=== PATIENT | female | born 1965 | race Caucasian/White ===

== ENCOUNTER 2017-10-17 06:28 | Day surgery (SDC) | payer BC, SELFPAY ==
[2017-10-17 07:11] VITALS: BP 109/89; PULSE 69; RESP 16; TEMP 36.7; O2SAT 96; BMI 26.9
--- NOTE | 2017-10-17 07:33 | PCM.HP.STD ---
Problem List (1) Family history of colonic polyps Status: Acute History of Present Illness Date of Admission: 10/17/17 The patient is a 52 year old F with a family history of colon polyps in her father. The patient does not recall when she had her most recent colonoscopy. She denies bright red blood per rectum or melena. She is referred by primary care for colonoscopy with possible biopsy or polypectomy. She has had some recent bronchitis. She was treated with antibiotics and she feels that she is improved. She was able to tolerate the bowel prep. Past Medical History Past Medical History (Chronic Problems): Chronic Problems Essential hypertension (Chronic) COPD (chronic obstructive pulmonary disease) (Chronic) Allergies sulfamethoxazole [From Bactrim] Allergy (Verified 09/30/17 16:05) Anaphylaxis trimethoprim [From Bactrim] Allergy (Verified 09/30/17 16:05) Anaphylaxis soy Adverse Reaction (Verified 09/30/17 16:05) Shortness of breath Home Medications: Ambulatory Orders Medication Instructions Recorded Albuterol IH (ProAir) [Proair Hfa] 1 - 2 puff INHALATION Q4H PRN PRN 06/03/17 Duloxetine Hcl [Cymbalta] 60 mg PO DAILY 06/03/17 Losartan/Hydrochlorothiazide 1 each PO DAILY 06/03/17 [Losartan-Hctz 100-25 mg Tab] Multivitamin [Daily Multiple 1 each PO DAILY 06/03/17 Vitamin] TraMADol [Ultram] 50 mg PO Q4H PRN PRN 07/02/17 Budesonide/Formoterol 160/4.5 2 puff INHALATION DAILY 09/30/17 [Symbicort 160/4.5 Mcg Inhaler (SP)] Lysine [l-Lysine] 600 mg PO DAILY 09/30/17 Surgical History: no surgical history Psychiatric History: No pertinent psych hx Smoking Status: Former smoker - *Family History Paternal History Items: No pertinent history Review of Systems Constitutional: Denies: Anorexia Eyes: Denies: Blurred vision HEENT: Denies: Difficulty Hearing Cardiovascular: Reports: - - Intermittent wheezing Respiratory: Reports: Cough, Wheezing Gastrointestinal: Denies: Abdominal Pain Genitourinary: Denies: Dysuria Musculoskeletal: Reports: - - Arm injuries from wood burner Skin: Reports: Dryness Neurological: Denies: Balance problems Psychiatric: Denies: Anxiety Endocrine: Denies: Change in Body Habitus Hematologic/ Lymphatic: Denies: Adenopathy VTE Information - Inpt Only VTE Present on Admission: No Patient Problems: Active and Suspected Problems Family history of colonic polyps (Acute) - Physical Exam General: Alert, Oriented x3, Cooperative HEENT: Atraumatic Oral: Moist Mucosa Neck: Supple Lungs: Wheezes Cardiovascular: Regular rate, Regular Rhythm Abdomen: Bowel Sounds Present, Soft, Non Tender Extremities: No clubbing Skin: No rashes Musculoskeletal: No Tenderness to Palpation of Joints or Extremities Neurological: Cranial nerves II-XII grossly intact Psych/Mental Status: Normal Affect Vital Signs Temp Pulse Resp BP Pulse Ox 98.0 F 69 16 109/89 H 96 10/17/17 07:11 10/17/17 07:11 10/17/17 07:11 10/17/17 07:11 10/17/17 07:11 Oxygen Delivery Method Room Air Weight: 161 lb 9.581 oz Body Mass Index (BMI) 26.9 Assessment/Plan Active and Suspected Problems Family history of colonic polyps (Acute) Some scattered wheezes noted on auscultation. The patient appears to be respiring easily. She has accomplished her bowel prep. We will proceed with colonoscopy with possible biopsy or polypectomy is indicated. She has had an opportunity to ask and have questions answered. Jackson Lemon M.D., F.A.C.S.
--- NOTE | 2017-10-17 07:58 | PCM.OPRPT ---
Problem List (1) Family history of colonic polyps Status: Acute Report of Operation Date of Procedure: 10/17/17 Pre-Operative Diagnosis: Family history with a father with colon polyps Post-Operative Diagnosis: Sigmoid diverticulosis Surgery/Procedure Performed:: Colonoscopy Description of Surgical Findings:: Timeout and informed consent was obtained. 52-year-old female was taken to the endoscopy suite. She was placed in a left lateral decubitus position. Throughout the procedure in aliquots she received total 100 mg Demerol and 4 mg of Versed is intravenous sedation. Digital rectal exam performed. Normal anal tone. Mild hemorrhoidal changes. Flexible colonoscope inserted the rectum advanced through a somewhat tortuous sigmoid colon. Scope was then advanced through the transverse colon with transabdominal pressure is advanced to the cecum. The cecum ileocecal valve area was nicely achieved. Bowel prep was good. The scope was carefully withdrawn from the cecum and ascending colon transverse colon and descending colon without abnormality noted. The sigmoid colon has moderate diverticulosis but no evidence of acute inflammatory change. The scope was retroflexed within the rectum the mild hemorrhoidal changes noted. Excess fluid and air was aspirated free the procedure was completed with the patient tolerating it well. Impression Sigmoid diverticulosis. Recommendations for consideration of follow-up colonoscopy at 5 years. Cc: Dr. Samuel Vazquez Medications given at 0738. Scope inserted 0742. Cecum reached at 0748.55. Procedure completed at 0755.16 Jackson Lemon M.D., F.A.C.S. Type of Anesthesia:: IV Sedation
[2017-10-17 08:00] VITALS: BP 109/89; BP 116/77; PULSE 64; RESP 18; TEMP 36.9; O2SAT 98
[2017-10-17 08:05] VITALS: BP 109/89; BP 118/77; PULSE 60; RESP 18; O2SAT 95
[2017-10-17 08:10] VITALS: BP 109/89; BP 118/73; PULSE 59; RESP 18; O2SAT 96
[2017-10-17 08:15] VITALS: BP 109/89; BP 121/80; PULSE 57; RESP 18; TEMP 36.7; O2SAT 98
[2017-10-17 08:33] VITALS: BP 109/89
== END 2017-10-17 08:35 | disposition home or self-care (01) ==
LOC: EN 06:30 → AC 06:30
PROVIDERS: Family Provider Family Medicine; PCP Family Medicine; Visit Provider Surgery
PROC: 0DJD8ZZ Inspection of Lower Intestinal Tract, Via Natural or Artificial Opening Endoscopic (ICD-10-PCS; CPT 45378; principal; 2017-10-17 07:40)
DX: K57.30 Diverticulosis of large intestine without perforation or abscess without bleeding (principal); J44.9 Chronic obstructive pulmonary disease, unspecified; I10 Essential (primary) hypertension; Z79.899 Other long term (current) drug therapy; Z87.891 Personal history of nicotine dependence; Z83.71 Family history of colonic polyps
CPT/HCPCS: 45378; J7120

== ENCOUNTER 2023-05-16 07:57 | Day surgery (SDC) | payer MEDICARE, SELFPAY ==
[2023-05-16 08:18] VITALS: BP 116/92; PULSE 86; RESP 16; TEMP 36.6; O2SAT 93; BMI 26.9
[2023-05-16] MEDS: Lactated Ringers 1,000 ML 15 ML IV (08:36)
--- NOTE | 2023-05-16 09:00 | COLBX_PTH ---
PATIENT: KELSI SCHAFER LOC: EN U#:[id number] AGE/SX: 57/F ROOM: RE05/16/[address]: Dr. Jackson Lemon MD : 1965 BED: DIS: 05/16/2023 SPEC #: [id number] RECD: 05/16/23 11:56 STATUS: RUFUS PALACIOSGena #: [id number] CHINO: 05/16/23 09:[address]: Jackson Lemon DEPT: SURGICAL PATHOLOGY RECD BY: Mai Maya ENTERED: 05/16/23 13:03 SP TYPE: COLON BX DEANNA DR: Dr. Samuel Vazquez MD Tissues: A - Cecum, NOS B - Sigmoid colon biopsy Procedures: Surgery Specimen Level IV HEADER OPERATION: Colonoscopy PRE-OP DIAGNOSIS: Family history of colonic polyps TISSUE SUBMITTED: A - Cecal polyp biopsy, B - Distal sigmoid polyp biopsy MICROSCOPIC DIAGNOSIS A. Cecal polyp, biopsy: Tubular adenoma. B. Distal sigmoid polyp, biopsy: Fragments of colonic mucosa, no pathologic diagnosis. JOI:[email or web address] 05/19/2023 MICROSCOPIC DESCRIPTION Slides are reviewed. GROSS DESCRIPTION A - Received in fixative is one container labeled with the patient's name and designated cecal polyp biopsy. The specimen consists of one irregular fragment of light brown soft tissue that measures 0.2 x 0.2 x 0.1 cm. The specimen is totally submitted in one cassette. B - Received in fixative is one container labeled with the patient's name and designated distal sigmoid polyp. The specimen consists of two irregular fragments of light brown soft tissue that in aggregate measure 0.5 x 0.2 x 0.1 cm. The specimen is totally submitted in one cassette. / JOI:abhishek 05/16/2023 TC:1 CPT: 27601 x2
--- NOTE | 2023-05-16 09:22 | HP.PCM_ITS ---
HPI - General General Date of Admission: 06/06/20 Date of Service: 05/16/23 Chief Complaint: Personal history of colon polyps HPI Narrative KELSI SCHAFER, is a 57 F who presents via open access today. She has a personal history remotely of colon polyps. Most recent colonoscopy was done in [place] by Dr. Grier October 17, 2017. Tortuous colon and diverticulosis was noted at that time. She has not had any any bright red blood per rectum or melena. I have assisted her with her previous hiatal hernia repair. She states that she might be having some recurrence but she is aware that we will not be evaluating that at this moment. FOR[facility]LY [facility] Medical History (Updated 05/14/23 @ 09:48 by Lanny Coates) Alcohol use Anxiety Arthritis Asthma Chronic cough COPD (chronic obstructive pulmonary disease) DDD (degenerative disc disease) Fibromyalgia GERD (gastroesophageal reflux disease) History of edema History of hiatal hernia History of IBS History of steroid therapy Hyperlipidemia Hypertension Large hiatal hernia Migraine Mild persistent asthma without complication Normal stress echocardiogram CRUZ (obstructive sleep apnea) Rheumatoid arthritis Rheumatoid arthritis involving multiple sites with positive rheumatoid factor Shortness of breath on exertion Sleep apnea Smoker Wears glasses Home Medications albuterol sulfate 90 mcg/actuation aerosol inhaler (ProAir HFA) 1 - 2 puff inhalation Q4H PRN PRN Asthma 06/03/17 [History Last Taken 10/17/17 06:00] duloxetine 60 mg capsule,delayed release 60 mg PO DAILY 06/03/17 [History Last Taken 07/07/17 04:30] losartan 100 mg-hydrochlorothiazide 25 mg tablet 1 ea PO DAILY 06/03/17 [History Last Taken 10/17/17 06:00] albuterol sulfate 2.5 mg/3 mL (0.083 %) solution for nebulization 2.5 mg inhalation Q4H PRN shortness of breath or wheezing 04/01/23 [History Last Taken Unknown] amlodipine 5 mg tablet 5 mg PO DAILY 04/01/23 [History Last Taken Unknown] mecobalamin (vitamin B12) 5,000 mcg chewable tablet 5,000 mcg PO DAILY 04/01/23 [History Last Taken Unknown] meloxicam 7.5 mg tablet 7.5 mg PO BID 04/01/23 [History Last Taken Unknown] budesonide 0.5 mg/2 mL suspension for nebulization 0.5 mg inhalation Q12H PRN COPD 05/14/23 [History Last Taken Unknown] loratadine 10 mg tablet (Allergy Relief (loratadine)) 10 mg PO DAILY 05/14/23 [History Last Taken Unknown] Allergy/AdvReac Type Severity Reaction Status Date / Time sulfamethoxazole Allergy Anaphylaxis Verified 05/14/23 09:34 [From Bactrim] trimethoprim [From Bactrim] Allergy Anaphylaxis Verified 05/14/23 09:34 soy AdvReac Shortness Verified 05/14/23 09:34 of breath Family History (Updated 04/01/23 @ 08:30 by Sharon Shaffer) Father Colon polyps Surgical History (Updated 05/14/23 @ 09:48 by Lanny Coates) History of ankle surgery History of bunionectomy History of repair of hiatal hernia Hx of carpal tunnel repair Hx of colonoscopy Hx of hand surgery Hx of tonsillectomy Social History Smoking Status: Current every day smoker tobacco type: cigarettes ROS Constitutional Constitutional: Reports systems reviewed and no addt'l complaints, except as documented Cardiovascular Cardiovascular: Denies chest pain Respiratory/Chest Respiratory/Chest: Denies shortness of breath at rest Gastrointestinal Gastrointestinal: Denies abdominal pain, change in bowel habits, hematochezia or melena Vital Signs Vital Signs Vital Signs: 05/16/23 08:18 05/16/23 08:18 Temperature 97.9 F Temperature Source Temporal Pulse Rate 86 Respiratory Rate 16 Respiratory Pattern Normal Blood Pressure 116/92 H Blood Pressure Mean 100 Blood Pressure Source Monitor Blood Pressure Position Semi-Fowlers Blood Pressure Location Left Arm Pulse Ox 93 Oxygen Delivery Method Room Air Weight Weight: 152 lb 1.903 oz Body Mass Index (BMI) 26.9 Physical Exam Const alert, oriented x3 and no apparent distress General Appearance: cooperative and comfortable Eyes General Eye: normal appearance of both eyes Neck General: normal visual inspection Chest inspection of chest normal Resp Effort and Inspection: able to speak in complete sentences and symmetric chest movement Auscultation: clear to auscultation bilaterally Cardio regular rate and regular rhythm GI soft to palpation, non-tender and non-distended Extremity no calf tenderness Neuro oriented x3 Psych thought process normal Assessment & Plan Assessment/Plan (1) Family history of colonic polyps: PLAN: Plan Patient presents for a surveillance colonoscopy as she states she has had a personal previous history of colon polyps and also only a family history of col on polyps. She is aware of the technique, benefit, risk, alternatives. She has had an opportunity to ask and have questions answered. We will proceed as noted. Jackson Lemon M.D., F.A.C.S.
[2023-05-16 09:53] VITALS: BP 116/92; BP 121/85; PULSE 106; RESP 18; TEMP 36.5; O2SAT 98
[2023-05-16 09:55] VITALS: BP 111/77; BP 116/92; PULSE 98; RESP 18; O2SAT 97
--- NOTE | 2023-05-16 09:56 | OP.COLON_ITS ---
Patient Name: Deysi Lai Procedure Date: 05/16/2023 9:23 AM Date of : 1965 Age: 57 Procedure: Colonoscopy Indications: High risk colon cancer surveillance: Personal history of colonic polyps Providers: Jackson Lemon MD Referring MD: Samuel Vazquez MD Medicines: See the Anesthesia note for documentation of the administered medications Patient Profile: Last Colonoscopy: September 2017. Complications: No immediate complications. Procedure: Pre-Anesthesia Assessment: - Prior to the procedure, a History and Physical was performed, and patient medications and allergies were reviewed. The patient's tolerance of previous anesthesia was also reviewed. The risks and benefits of the procedure and the sedation options and risks were discussed with the patient. All questions were answered, and informed consent was obtained. Prior Anticoagulants: The patient has taken no anticoagulant or antiplatelet agents. ASA Grade Assessment: II - A patient with mild systemic disease. After reviewing the risks and benefits, the patient was deemed in satisfactory condition to undergo the procedure. After I obtained informed consent, the scope was passed under direct vision. Throughout the procedure, the patient's blood pressure, pulse, and oxygen saturations were monitored continuously. The colonoscope was introduced through the anus and advanced to the cecum, identified by appendiceal orifice and ileocecal valve. The colonoscopy was performed without difficulty. The patient tolerated the procedure well. The quality of the bowel preparation was good. The ileocecal valve and the appendiceal orifice were photographed. Scope In: 9:32:39 AM Scope Withdrawal Time 0 hours 9 minutes 17 seconds Scope Out: 9:48:12 AM Total Procedure Duration Time 0 hours 15 minutes 33 seconds Findings: The digital rectal exam findings include non-thrombosed external hemorrhoids, non-thrombosed internal hemorrhoids and internal hemorrhoids that prolapse with straining, but spontaneously regress to the resting position (Grade II). A 3 mm polyp was found in the cecum. The polyp was sessile. The polyp was removed with a cold biopsy forceps. Resection and retrieval were complete. A 4 mm polyp was found in the distal sigmoid colon. The polyp was sessile. The polyp was removed with a cold biopsy forceps. Resection and retrieval were complete. Multiple diverticula were found in the sigmoid colon. Impression: - Non-thrombosed external hemorrhoids, non-thrombosed internal hemorrhoids and internal hemorrhoids that prolapse with straining, but spontaneously regress to the resting position (Grade II) found on digital rectal exam. - One 3 mm polyp in the cecum, removed with a cold biopsy forceps. Resected and retrieved. - One 4 mm polyp in the distal sigmoid colon, removed with a cold biopsy forceps. Resected and retrieved. - Diverticulosis in the sigmoid colon. Recommendation: - Discharge patient to home. - Resume previous diet. - Continue present medications. - Repeat colonoscopy in 5 years for surveillance based on pathology results. Procedure Code(s): --- Professional --- 82566, Colonoscopy, flexible; with biopsy, single or multiple Diagnosis Code(s): --- Professional --- Z86.010, Personal history of colonic polyps K64.1, Second degree hemorrhoids K64.4, Residual hemorrhoidal skin tags D12.0, Benign neoplasm of cecum D12.5, Benign neoplasm of sigmoid colon K57.30, Diverticulosis of large intestine without perforation or abscess without bleeding CPT copyright 2021 [employer]. All rights reserved. The codes documented in this report are preliminary and upon fly frame tender review may be revised to meet current compliance requirements. Jackson Lemon MD 05/16/2023 9:55:27 AM This report has been signed electronically. Number of Addenda: 0 Note Initiated On: 05/16/2023 9:23 AM
--- NOTE | 2023-05-16 09:56 | OP.CCLET_ITS ---
05/16/2023 Samuel Vazquez MD Re : Colonoscopy procedure for Deysi Lai Dear Dr. Vazquez This procedure was performed on Tuesday, May 16, 2023. My impressions and recommendations are as follows: Impressions : - Non-thrombosed external hemorrhoids, non-thrombosed internal hemorrhoids and internal hemorrhoids that prolapse with straining, but spontaneously regress to the resting position (Grade II) found on digital rectal exam. - One 3 mm polyp in the cecum, removed with a cold biopsy forceps. Resected and retrieved. - One 4 mm polyp in the distal sigmoid colon, removed with a cold biopsy forceps. Resected and retrieved. - Diverticulosis in the sigmoid colon. Recommendations : - Discharge patient to home. - Resume previous diet. - Continue present medications. - Repeat colonoscopy in 5 years for surveillance based on pathology results. My findings are described in the full procedure note, which is enclosed. If I can be of further assistance, please feel free to contact me at Doctor phone number(s): Work: . Sincerely, Jackson Lemon MD 05/16/2023 9:55:27 AM This report has been signed electronically.
[2023-05-16 10:00] VITALS: BP 100/58; BP 116/92; PULSE 77; RESP 18; O2SAT 95
[2023-05-16 10:08] VITALS: BP 100/58; BP 116/92; PULSE 69; RESP 18; TEMP 36.6; O2SAT 97
[2023-05-16 10:34] VITALS: BP 116/92
== END 2023-05-16 10:47 | disposition home or self-care (01) ==
LOC: EN 08:01 → AC 08:02
PROVIDERS: PCP Family Medicine; Referring Provider Family Medicine; Visit Provider Surgery
PROC: 0DJD8ZZ Inspection of Lower Intestinal Tract, Via Natural or Artificial Opening Endoscopic (ICD-10-PCS; CPT 45378; principal; 2023-05-16 08:55)
DX: Z12.11 Encounter for screening for malignant neoplasm of colon (principal); J44.9 Chronic obstructive pulmonary disease, unspecified; J45.30 Mild persistent asthma, uncomplicated; D12.0 Benign neoplasm of cecum; D12.5 Benign neoplasm of sigmoid colon; K64.1 Second degree hemorrhoids; K64.4 Residual hemorrhoidal skin tags; K57.30 Diverticulosis of large intestine without perforation or abscess without bleeding; I10 Essential (primary) hypertension; F17.210 Nicotine dependence, cigarettes, uncomplicated; Z79.899 Other long term (current) drug therapy; Z86.010 Personal history of colon polyps; Z83.71 Family history of colonic polyps
CPT/HCPCS: 45380; 88305; J7120; J2405

== ENCOUNTER → 2023-07-07 | Outpatient (CLI) | payer MEDICARE, SELFPAY ==
--- NOTE | 2023-07-07 08:45 | RAD_ITS ---
EXAMINATION: Air contrast esophagram and UPPER GI SERIES INDICATION: Female, 57 years history of prior hiatal hernia repair. FLUOROSCOPY TIME (if supplied): (1:20) minutes/seconds. 23 images were obtained. TECHNIQUE: Radiographic and fluoroscopic images of the distal esophagus, stomach, and proximal small intestine were obtained following the oral ingestion of barium. COMPARISON: None. FINDINGS: There is no evidence for organomegaly, abnormal calcifications, or abnormal bowel gas pattern. The psoas margins and flank stripes are normal. The visualized osseous structures are normal. The mucosa of the esophagus, stomach and duodenum is normal in appearance without evidence for stricture, ulceration, mass or diverticulum. The patient is status post Randy fundoplication. Mild degree of gastroesophageal reflux. The patient ingested a 12 mm tablet of barium without any difficulty. The remainder of the stomach and duodenum is unremarkable. RAD/Upper GI w/BA Swallow IMPRESSION: Status post Gilles fundoplication with mild gastroesophageal reflux. Electronically Signed: Butch Russell MD at 15:40 EDT ,
== END | disposition home or self-care (01) ==
LOC: RAD 08:40
PROVIDERS: PCP Family Medicine; Referring Provider Surgery; Visit Provider Surgery
DX: R13.19 Other dysphagia (principal)
CPT/HCPCS: 74246

== ENCOUNTER 2023-07-25 07:55 | Day surgery (SDC) | payer MEDICARE, SELFPAY ==
[2023-07-25] VITALS (7 sets, daily range): BP systolic 101–117; BP diastolic 78–84; PULSE 80–90; RESP 18–20; TEMP 36.6; O2SAT 92–96; BMI 26.5
[2023-07-25] MEDS: Lactated Ringers 1,000 ML 15 ML IV (08:25)
[2023-07-25] MEDS: Ipratropium/Albuterol Sulfate 3 ML AMPUL.NEB INHALATION (08:41)
--- NOTE | 2023-07-25 08:50 | HP.PCM_ITS ---
History and Physical Date of Admission: 07/25/[address] Jackson Lemon MD on 07/08/23 at 1545 Intake Chief Complaint: early, satiety, coughing and vomiting Allergies sulfamethoxazole [From Bactrim] Allergy (Verified 06/23/23 14:14) Anaphylaxistrimethoprim [From Bactrim] Allergy (Verified 06/23/23 14:14) Anaphylaxissoy Adverse Reaction (Verified 06/23/23 14:14) Shortness of breathSOYBEANS Allergy (Severe, Uncoded 06/23/23 14:14) Shortness of breath Medications albuterol sulfate 90 mcg/actuation aerosol inhaler (ProAir HFA) 1 - 2 puff inhalation Q4H PRN PRN Asthma 06/03/17 [History Confirmed 06/23/23] losartan 100 mg-hydrochlorothiazide 25 mg tablet 1 ea PO DAILY 06/03/17 [History Confirmed 06/23/23] albuterol sulfate 2.5 mg/3 mL (0.083 %) solution for nebulization 2.5 mg inhalation Q4H PRN shortness of breath or wheezing 04/01/23 [History Confirmed 06/23/23] amlodipine 5 mg tablet 5 mg PO DAILY 04/01/23 [History Confirmed 06/23/23] mecobalamin (vitamin B12) 5,000 mcg chewable tablet 5,000 mcg PO DAILY 04/01/23 [History Confirmed 06/23/23] meloxicam 7.5 mg tablet 7.5 mg PO BID 04/01/23 [History Confirmed 06/23/23] budesonide 0.5 mg/2 mL suspension for nebulization 0.5 mg inhalation Q12H PRN COPD 05/14/23 [History Confirmed 06/23/23] duloxetine 60 mg capsule,delayed release 60 mg PO DAILY 06/23/23 [History Confirmed 06/23/23] loratadine 10 mg tablet (Allergy Relief (loratadine)) 10 mg PO DAILY PRN 06/23/23 [History Confirmed 06/23/23] Assessment and Plan Assessment and Plan (1) Esophageal dysphagia: Status: Acute Plan: July 08, 2023 EXAMINATION: Air contrast esophagram and UPPER GI SERIES INDICATION: Female, 57 years history of prior hiatal hernia repair. FLUOROSCOPY TIME (if supplied): (1:20) minutes/seconds. 23 images were obtained. TECHNIQUE: Radiographic and fluoroscopic images of the distal esophagus, stomach, and proximal small intestine were obtained following the oral ingestion of barium. COMPARISON: None. FINDINGS: There is no evidence for organomegaly, abnormal calcifications, or abnormal bowel gas pattern. The psoas margins and flank stripes are normal. The visualized osseous structures are normal. The mucosa of the esophagus, stomach and duodenum is normal in appearance without evidence for stricture, ulceration, mass or diverticulum. The patient is status post Randy fundoplication. Mild degree of gastroesophageal reflux. The patient ingested a 12 mm tablet of barium without any difficulty. The remainder of the stomach and duodenum is unremarkable. RAD/Upper GI w/BA Swallow IMPRESSION: Status post Gilles fundoplication with mild gastroesophageal reflux. Electronically Signed: Butch Russell MD at 15:40 EDT , (2) History of hiatal hernia: Status: Acute Comment: LAP GILLES Orders: Orders Upper GI w/BA Swallow 07/07/23 R13.19 - Other dysphagia Dr. Jackson Lemon MD EGD 07/25/23 Regina FORREST, PA-C 07/08/23 1545 <Electronically signed by Jackson Lemon MD> Date Jackson Lemon MD cc: Dr. 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: No Is patient in pain?: No Allergies sulfamethoxazole [From Bactrim] Allergy (Verified 06/23/23 14:14) Anaphylaxistrimethoprim [From Bactrim] Allergy (Verified 06/23/23 14:14) Anaphylaxissoy Adverse Reaction (Verified 06/23/23 14:14) Shortness of breathSOYBEANS Allergy (Severe, Uncoded 06/23/23 14:14) Shortness of breath Medications albuterol sulfate 90 mcg/actuation aerosol inhaler (ProAir HFA) 1 - 2 puff inhalation Q4H PRN PRN Asthma 06/03/17 [History Confirmed 06/23/23] losartan 100 mg-hydrochlorothiazide 25 mg tablet 1 ea PO DAILY 06/03/17 [History Confirmed 06/23/23] albuterol sulfate 2.5 mg/3 mL (0.083 %) solution for nebulization 2.5 mg inhalation Q4H PRN shortness of breath or wheezing 04/01/23 [History Confirmed 06/23/23] amlodipine 5 mg tablet 5 mg PO DAILY 04/01/23 [History Confirmed 06/23/23] mecobalamin (vitamin B12) 5,000 mcg chewable tablet 5,000 mcg PO DAILY 04/01/23 [History Confirmed 06/23/23] meloxicam 7.5 mg tablet 7.5 mg PO BID 04/01/23 [History Confirmed 06/23/23] budesonide 0.5 mg/2 mL suspension for nebulization 0.5 mg inhalation Q12H PRN COPD 05/14/23 [History Confirmed 06/23/23] duloxetine 60 mg capsule,delayed release 60 mg PO DAILY 06/23/23 [History Confirmed 06/23/23] loratadine 10 mg tablet (Allergy Relief (loratadine)) 10 mg PO DAILY PRN 06/23/23 [History Confirmed 06/23/23] [facility] Medical History (Updated 06/23/23 @ 14:[address] Jackson Lemon MD) Alcohol use Anxiety Arthritis Asthma Chronic cough COPD (chronic obstructive pulmonary disease) DDD (degenerative disc disease) Fibromyalgia GERD (gastroesophageal reflux disease) History of edema History of hiatal hernia History of IBS History of steroid therapy Hyperlipidemia Hypertension Large hiatal hernia Migraine Mild persistent asthma without complication Normal stress echocardiogram CRUZ (obstructive sleep apnea) Rheumatoid arthritis Rheumatoid arthritis involving multiple sites with positive rheumatoid factor Shortness of breath on exertion Sleep apnea Smoker Wears glasses Surgical History History of ankle surgery History of bunionectomy History of repair of hiatal hernia Hx of carpal tunnel repair Hx of colonoscopy Hx of hand surgery Hx of tonsillectomy Family History (Updated 06/23/23 @ 14:12 by Neyda Carranza) Father Colon polyps HypertensionMother Diabetes Hypertension Social History Smoking Status: Current every day smoker tobacco type: cigarettes HPI HPI HPI: 57-year-old female. I have most recently assisted her on May 16, 2023 with a colonoscopy. She presented via open access at that time and it was noting a family history of colon polyps. I performed a colonoscopy on May 16, 2023 demonstrating hemorrhoids and a 3 mm polyp in the cecum and a 4 mm polyp in the distal sigmoid. Follow-up colonoscopy at 5 years recommended. Pathology of the cecal polyp was tubular adenoma and of the distal sigmoid just normal colonic mucosa. She presents now with concerns about early satiety and coughing and vomiting. The patient has a history of a large paraesophageal hiatal hernia the repair of her July 07 with a laparoscopic repair with a loose short laparoscopic Gilles fundoplication as well as a laparoscopic gastropexy. Patient states that for the past year she has had esophageal dysphagia. She feels like food goes down but then gets caught on occasion and she has to vomit it out. She has not had any weight loss over the past year. She does not really have pain. It is of note that the patient is an ongoing daily cigarette smoker. She states that she has intolerance to soybean and that she has had more coughing and wheezing recently ROS General General: Yes fatigue; No weight change, appetite, colon cancer, breast cancer or weakness HEENT HEENT: No difficulty swallowing, eye injury, eye surgery, swollen glands or hoarseness Endo Endocrine: No thyroid disease, diabetes mellitus, thyroid cancer, Hair loss, heat intolerance or cold intolerance Skin Skin: No rash or changing moles Breast Breast: No left breast lump, right breast lump, nipple discharge, breast pain, abnormal mammogram, abnormal US or breast enlargement Musc Musculoskeletal: Yes arthritis and rheumatoid arthritis; No back problems, gout or joint pain Cardio Cardiovascular: Yes high blood pressure; No murmur, pacemaker, heart disease, atrial fibrillation, heart attack, heart stent, palpitations, shortness of breat with exertion or chest pain Psych Psychiatric: No depression, anxiety or hearing voices Resp Respiratory: No shortness of breath, Yes sleep apnea, Yes cough, Yes COPD, Yes asthma, No emphysema and No wheezing Gastro Gastrointestinal: No abdominal pain, Yes nausea or vomiting, No diarrhea, No constipation, No blood in stool, Yes acid reflux, No hemorrhoids, No ulcers, No gallbladder problem and No black,tarry stools Oscar Hematologic: No blood thinners, No blood disorders, No bleeding, Yes anemia and No blood clots Neuro Neurologic: No system reviewed and no additional complaints, except as documente d, No as per HPI, No abnormal gait, No abnormal hearing, No abnormal movements, No abnormal speech, No behavioral changes, No burning sensations, No confusion, No convulsions, No disequilibrium, No dizziness, No localized weakness, No frequent falls, No headache(s), No lack of coordination, No loss of vision, No memory loss, No numbness, No other visual disturbances, No radicular pain, No restless legs, No sensory deficit, No syncope, No tingling, No tremor(s), No weakness and No other Exam Const General: cooperative and comfortable [facility] Head: normal to inspection Eyes General: appearance normal, both eyes and all related structures Neck Neck: normal visual inspection Chest Other: Increased anterior posterior diameter Resp Other: Chronic bibasilar rales, diffuse right basilar wheeze Cardio Rate: regular rate Rhythm: regular rhythm GI Inspection: normal to inspection Palpation: soft and no hepatosplenomegaly Musc Cervical Spine: normal cervical lordosis Skin General: no rashes or lesions noted Neuro General: patient alert, patient awake and patient oriented x3 Extrem General: no calf tenderness Psych Appearance: grossly normal Assessment and Plan Assessment and Plan (1) Esophageal dysphagia: Status: Acute (2) History of hiatal hernia: Status: Acute Comment: CECY GILLES Orders: Orders Upper GI w/BA Swallow Today R13.19 - Other dysphagia Plan Esophageal dysphagia of undetermined etiology. The patient had a previous large paraesophageal hiatal herniorrhaphy with a laparoscopic Gilles fundoplication. Ongoing tobacco use. Potential for breakdown of the repair. I propose both a barium esophagram she will upper GI study and an esophagogastroduodenoscopy with possible biopsy. She has had an opportunity to ask and have questions answered. I appreciate the ongoing option of assisting with her surgical care. We will schedule and proceed at her discretion. Copy: Dr. Samuel Lemon M.D., F.A.C.S. July 07, 2023 EXAMINATION: Air contrast esophagram and UPPER GI SERIES INDICATION: Female, 57 years history of prior hiatal hernia repair. FLUOROSCOPY TIME (if supplied): (1:20) minutes/seconds. 23 images were obtained. TECHNIQUE: Radiographic and fluoroscopic images of the distal esophagus, stomach, and proximal small intestine were obtained following the oral ingestion of barium. COMPARISON: None. FINDINGS: There is no evidence for organomegaly, abnormal calcifications, or abnormal bowel gas pattern. The psoas margins and flank stripes are normal. The visualized osseous structures are normal. The mucosa of the esophagus, stomach and duodenum is normal in appearance without evidence for stricture, ulceration, mass or diverticulum. The patient is status post Randy fundoplication. Mild degree of gastroesophageal reflux. The patient ingested a 12 mm tablet of barium without any difficulty. The remainder of the stomach and duodenum is unremarkable. RAD/Upper GI w/BA Swallow
--- NOTE | 2023-07-25 09:00 | IMM_PTH ---
PATIENT: KELSI SCHAFER LOC: EN U#:[id number] AGE/SX: 57/F ROOM: RE07/25/[address]: Dr. Jackson Lemon MD : 1965 BED: DIS: 07/25/2023 SPEC #: [id number] RECD: 07/25/23 13:44 STATUS: RUFUS REGena #: [id number] CHINO: 07/25/23 09:[address]: Jackson Lemon DEPT: IMMUNOHISTOCHEMISTRY RECD BY: Savannah Courtney ENTERED: 07/25/23 13:44 SP TYPE: IMMUNO OTHR DR: Dr. Samuel Vazquez MD Tissues: A - Stomach, NOS Procedures: H Pylori (initial) PHYSICIAN & INSTITUTION [place] [id number] SPECIMEN INFORMATION: Tissue Source: A - Antrum Clinical Info: Dysphagia Specimen Number: [id number] CPT code: 30403 METHODOLOGY: Deparaffinized sections of prefer/formalin-fixed tissue or PAP/DQ stained slides are incubated with monoclonal/polyclonal antibodies/oligonucleotide probes. Localization is made via biotin free immunoperoxidase method. Appropriate controls are performed and reacted as expected. Results on target cell population are indicated in the following table: RESULTS: ANTIBODY / CLONE RESULT Block A H Pylori (polyclonal) negative These tests were developed and their performance characteristics determined by [facility]. They may not have been cleared or approved by the U.S. Food and Drug Administration. The FDA has determined that such clearance or approval is not necessary. The above immunohistochemical/dualISH markers are ordered and reviewed by the Pathologist. INTERPRETATION: A. Antrum, biopsy: Negative for Helicobacter pylori organisms. SJ:zahira 07/28/2023
--- NOTE | 2023-07-25 09:00 | EGD_PTH ---
PATIENT: KELSI SCHAFER LOC: EN U#:[id number] AGE/SX: 57/F ROOM: RE07/25/[address]: Dr. Jackson Lemon MD : 1965 BED: DIS: 07/25/2023 SPEC #: [id number] RECD: 07/25/23 11:20 STATUS: RUFUS VENESSA #: [id number] CHINO: 07/25/23 09:[address]: Jackson Lemon DEPT: SURGICAL PATHOLOGY RECD BY: Tammie Alejandra ENTERED: 07/25/23 11:46 SP TYPE: EGD BIOPSY DEANNA DR: Dr. Samuel Vazquez MD Tissues: A - Gastric mucous membrane B - Esophageal mucous membrane C - Esophageal mucous membrane Procedures: Surgery Specimen Level IV HEADER OPERATION: EGD PRE-OP DIAGNOSIS: Dysphagia TISSUE SUBMITTED: A - Antrum for H. pylori and path, B - EG junction biopsy C - Distal esophagus biopsy, MICROSCOPIC DIAGNOSIS A. Antrum, biopsy: Mild gastritis. See microscopic description and comment. B. EG junction, biopsy: Fragments of gastroesophageal mucosa with chronic inflammation. Intestinal metaplasia (goblet cell metaplasia) not identified. C. Distal esophagus, biopsy: Fragments of squamous epithelium with mild chronic inflammation. SJ: 07/28/2023 COMMENT A. The results of immunohistochemistry for Helicobacter pylori will be reported separately ([id number]). B. Alcian blue/PAS stain with matched control supports the above diagnosis. MICROSCOPIC DESCRIPTION Slides are reviewed. The specimen shows fragments of gastric mucosa with chronic inflammatory cell infiltrates in the lamina propria consisting of lymphocytes and plasma cells, consistent with mild chronic gastritis. GROSS DESCRIPTION A - Received in fixative is one container labeled with the patient's name and designated antrum biopsy. The specimen consists of one irregular fragment of light brown soft tissue that measures 0.3 x 0.3 x 0.1 cm. The specimen is totally submitted in one cassette. B - Received in fixative is one container labeled with the patient's name and designated EG junction biopsy. The specimen consists of multiple irregular fragments of light brown soft tissue that in aggregate measure 1.0 x 0.4 x 0.1 cm. The specimen is totally submitted in one cassette. C - Received in fixative is one container labeled with the patient's name and designated distal esophagus biopsy. The specimen consists of two irregular fragments of light brown soft tissue that in aggregate measure 0.6 x 0.3 x 0.1 cm. The specimen is totally submitted in one cassette. / SJ:rg 07/25/2023 TC:3 CPT: 00901 x3, [id number]
--- NOTE | 2023-07-25 09:57 | OP.CCLET_ITS ---
07/25/2023 Samuel Vazquez MD Re : Upper GI endoscopy procedure for Deysi Lai Dear Dr. Vazquez This procedure was performed on Tuesday, July 25, 2023. My impressions and recommendations are as follows: Impressions : - LA Grade A reflux esophagitis with no bleeding. Biopsied. Medium hiatal hernia with findings suggestive of a slipped Gilles fundoplication - Z-line irregular, 33 cm from the incisors. - Medium-sized hiatal hernia. - Erythematous mucosa in the gastric fundus. Biopsied Widely patent pylorus. - Normal duodenum. Recommendations : - Discharge patient to home. - Resume previous diet. - Continue present medications. - Return to my office in 1 week. This patient has significant COPD. Significant coughing during the procedure. Consider maximization of medical care. Could consider tertiary referral if patient requested. My findings are described in the full procedure note, which is enclosed. If I can be of further assistance, please feel free to contact me at Doctor phone number(s): Work: . Sincerely, Jackson Lemon MD 07/25/2023 9:57:04 AM This report has been signed electronically.
--- NOTE | 2023-07-25 09:57 | OP.EGD_ITS ---
Patient Name: Deysi Lai Procedure Date: 07/25/2023 9:23 AM Date of : 1965 Age: 57 Procedure: Upper GI endoscopy Indications: Dysphagia Providers: Jackson Lemon MD Referring MD: Samuel Vazquez MD Medicines: See the Anesthesia note for documentation of the administered medications Patient Profile: She is status post laparoscopic antireflux surgery. Complications: No immediate complications. Procedure: Pre-Anesthesia Assessment: - Prior to the procedure, a History and Physical was performed, and patient medications and allergies were reviewed. The patient's tolerance of previous anesthesia was also reviewed. The risks and benefits of the procedure and the sedation options and risks were discussed with the patient. All questions were answered, and informed consent was obtained. Prior Anticoagulants: The patient has taken no anticoagulant or antiplatelet agents. ASA Grade Assessment: III - A patient with severe systemic disease. After reviewing the risks and benefits, the patient was deemed in satisfactory condition to undergo the procedure. After obtaining informed consent, the endoscope was passed under direct vision. Throughout the procedure, the patient's blood pressure, pulse, and oxygen saturations were monitored continuously. The Endoscope was introduced through the mouth, and advanced to the second part of duodenum. The upper GI endoscopy was accomplished without difficulty. The patient tolerated the procedure well. Scope In: 9:33:53 AM Scope Out: 9:48:49 AM Total Procedure Duration Time 0 hours 14 minutes 56 seconds Findings: LA Grade A (one or more mucosal breaks less than 5 mm, not extending between tops of 2 mucosal folds) esophagitis with no bleeding was found 33 cm from the incisors. Biopsies were taken with a cold forceps for histology. The Z-line was irregular and was found 33 cm from the incisors. A medium-sized hiatal hernia was present. Diffuse mildly erythematous mucosa without bleeding was found in the gastric fundus. Biopsies were taken with a cold forceps for histology. The in the duodenum was normal. Impression: - LA Grade A reflux esophagitis with no bleeding. Biopsied. Medium hiatal hernia with findings suggestive of a slipped Gilles fundoplication - Z-line irregular, 33 cm from the incisors. - Medium-sized hiatal hernia. - Erythematous mucosa in the gastric fundus. Biopsied Widely patent pylorus. - Normal duodenum. Recommendation: - Discharge patient to home. - Resume previous diet. - Continue present medications. - Return to my office in 1 week. This patient has significant COPD. Significant coughing during the procedure. Consider maximization of medical care. Could consider tertiary referral if patient requested. Procedure Code(s): --- Professional --- 90259, Esophagogastroduodenoscopy, flexible, transoral; with biopsy, single or multiple Diagnosis Code(s): --- Professional --- K21.00, Gastro-esophageal reflux disease with esophagitis, without bleeding K22.89, Other specified disease of esophagus K44.9, Diaphragmatic hernia without obstruction or gangrene K31.89, Other diseases of stomach and duodenum R13.10, Dysphagia, unspecified CPT copyright 2021 [employer]. All rights reserved. The codes documented in this report are preliminary and upon nuclear supervising operator review may be revised to meet current compliance requirements. Jackson Lemon MD 07/25/2023 9:57:04 AM This report has been signed electronically. Number of Addenda: 0 Note Initiated On: 07/25/2023 9:23 AM
== END 2023-07-25 10:40 | disposition home or self-care (01) ==
LOC: EN 07:57 → AC 07:59
PROVIDERS: PCP Family Medicine; Referring Provider Family Medicine; Visit Provider Surgery
PROC: 0DJ08ZZ Inspection of Upper Intestinal Tract, Via Natural or Artificial Opening Endoscopic (ICD-10-PCS; CPT 43235; principal; 2023-07-25 08:55)
DX: K31.89 Other diseases of stomach and duodenum (principal); J44.9 Chronic obstructive pulmonary disease, unspecified; K29.70 Gastritis, unspecified, without bleeding; K21.00 Gastro-esophageal reflux disease with esophagitis, without bleeding; R68.81 Early satiety; K44.9 Diaphragmatic hernia without obstruction or gangrene; R13.10 Dysphagia, unspecified; F17.210 Nicotine dependence, cigarettes, uncomplicated; I10 Essential (primary) hypertension; G47.33 Obstructive sleep apnea (adult) (pediatric); Z79.899 Other long term (current) drug therapy; Z86.010 Personal history of colon polyps
CPT/HCPCS: 43239; 88305; 88342; 94640; J7120; J2405

== ENCOUNTER 2023-09-26 09:33 | Day surgery (SDC) | payer MEDICARE, SELFPAY ==
--- NOTE | 2023-09-16 12:07 | EKG12_ITS ---
Test Reason : PRE OP Blood Pressure : / mmHG Vent. Rate : 085 BPM Atrial Rate : 085 BPM P-R Int : 168 ms QRS Dur : 086 ms QT Int : 388 ms P-R-T Axes : 058 -08 026 degrees QTc Int : 461 ms Normal sinus rhythm Low voltage QRS Inferior infarct , age undetermined Abnormal ECG Confirmed by SHAMIR SAENZ, JIMENEZ ([id number]), advertising editor MOISÉS SHARPE ([id number]) on 09/23/2023 9:30:12 AM Referred By: Jackson Lemon Confirmed By:JIMENEZ BARKSDALE MD
[2023-09-16 13:01] LABS: Hematocrit 44.5 % (37-47); Hemoglobin 14.1 g/dL (12.0-15.0); Mean Corp Hgb Conc 31.7 g/dL (32-36); Mean Corpuscular Volume 101.1 fL (81-99); Mean Platelet Vol. 10.6 fl (6.2-12.0); Platelet Count 243 K/mm3 (150-450); RBC Distribution Width CV 13.7 % (11.6-14.6); RBC Distribution Width SD 51.2 fl (35.1-43.9); White Blood Count 10.5 K/mm3 (4.4-11.0)
[2023-09-16 13:36] LABS: Anion Gap 4 (5-15); BUN 16 mg/dL (7-18); Calcium,Total 9.5 mg/dL (8.5-10.1); Chloride 107 mmol/L (98-107); Creatinine, Serum 0.76 mg/dL (0.55-1.02); EST Glomerular Filtration Rate 82 mL/min (>60); Est Glom Filt Rate - Afr Amer 100 mL/min (>60); Glucose 105 mg/dL (74-106); Potassium 3.8 mmol/L (3.5-5.1); Sodium Level 140 mmol/L (136-145)
[2023-09-26] VITALS (8 sets, daily range): BP systolic 114–130; BP diastolic 75–88; PULSE 63–98; RESP 16; TEMP 36.5–37; O2SAT 3–98; BMI 27.7
[2023-09-26] MEDS: Lactated Ringers 1,000 ML 15 ML IV ×2 (10:13→12:19)
--- NOTE | 2023-09-26 10:48 | PCM.HP.BLA ---
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 Required: No Is patient in pain?: No Allergies sulfamethoxazole [From Bactrim] Allergy (Verified 08/11/23 14:34) Anaphylaxistrimethoprim [From Bactrim] Allergy (Verified 08/11/23 14:34) Anaphylaxissoy Adverse Reaction (Verified 08/11/23 14:34) Shortness of breathSOYBEANS Allergy (Severe, Uncoded 08/11/23 14:34) Shortness of breath Medications albuterol sulfate 90 mcg/actuation aerosol inhaler (ProAir HFA) 1 - 2 puff inhalation Q4H PRN PRN Asthma 06/03/17 [History Confirmed 08/11/23] losartan 100 mg-hydrochlorothiazide 25 mg tablet 1 ea PO DAILY 06/03/17 [History Confirmed 08/11/23] amlodipine 5 mg tablet 5 mg PO DAILY 04/01/23 [History Confirmed 08/11/23] mecobalamin (vitamin B12) 5,000 mcg chewable tablet 5,000 mcg PO DAILY 04/01/23 [History Confirmed 08/11/23] meloxicam 7.5 mg tablet 7.5 mg PO BID 04/01/23 [History Confirmed 08/11/23] budesonide 0.5 mg/2 mL suspension for nebulization 0.5 mg inhalation Q12H PRN COPD 05/14/23 [History Confirmed 08/11/23] duloxetine 60 mg capsule,delayed release 60 mg PO DAILY 06/23/23 [History Confirmed 08/11/23] loratadine 10 mg tablet (Allergy Relief (loratadine)) 10 mg PO DAILY PRN allergy symptoms 06/23/23 [History Confirmed 08/11/23] budesonide-formoterol HFA 160 mcg-4.5 mcg/actuation aerosol inhaler (Symbicort) 2 puff inhalation BID 07/21/23 [History Confirmed 08/11/23] ipratropium 0.5 mg-albuterol 3 mg (2.5 mg base)/3 mL nebulization soln 3 ml inhalation Q8H PRN shortness of breath or wheezing 07/21/23 [History Confirmed 08/11/23] [facility] Medical History (Updated 08/11/23 @ 16:[address] Jackson Lemon MD) Alcohol use Anxiety Arthritis Asthma Chronic cough COPD (chronic obstructive pulmonary disease) DDD (degenerative disc disease) Fibromyalgia GERD (gastroesophageal reflux disease) History of edema History of hiatal hernia History of IBS History of steroid therapy Hyperlipidemia Hypertension Large hiatal hernia Migraine Mild persistent asthma without complication Normal stress echocardiogram CRUZ (obstructive sleep apnea) Rheumatoid arthritis Rheumatoid arthritis involving multiple sites with positive rheumatoid factor Shortness of breath on exertion Sleep apnea Smoker Wears glasses Surgical History History of ankle surgery History of bunionectomy History of repair of hiatal hernia Hx of carpal tunnel repair Hx of colonoscopy Hx of hand surgery Hx of tonsillectomy Family History (Updated 06/23/23 @ 14:12 by Neyda Carranza) Father Colon polyps HypertensionMother Diabetes Hypertension Social History Smoking Status: Former smoker HPI HPI HPI: 57-year-old female. Because of early satiety coffee and vomiting the patient was referred back for ongoing evaluation. She had a upper GI contrast studies suggesting evidence of a previous Gilles fundoplication with some mild GE reflux. Among her other medical illnesses she has chronic cough, COPD, history of a large hiatal hernia, ongoing use of cigarette smoking. On July 25, 2023 I performed a esophagogastroduodenoscopy for her. I felt that a medium size hiatal hernia was present suggesting likely some slippage of the wrap. The patient does have significant COPD and throughout the procedure she had significant coughing. The patient however is noticed a new problem today. She states for several months she has had a bulge in the right groin. She states that Dr. Silver Gamino help previously through an open approach remotely repaired a left inguinal hernia. Exam Const General: cooperative, comfortable and no acute distress [facility] Head: normal to inspection Eyes General: appearance normal, both eyes and all related structures Neck Neck: normal visual inspection Resp Effort & Inspection: normal respiratory effort Auscultation: clear to auscultation bilaterally Cardio Rate: regular rate Rhythm: regular rhythm GI Palpation: soft and no hepatosplenomegaly Other: Well-healed surgical incision transversely left groin. Reducible medial right inguinal hernia. Slightly tender Skin General: no rashes or lesions noted Neuro General: patient alert and patient awake Extrem General: no calf tenderness Psych Appearance: grossly normal Assessment and Plan Assessment and Plan (1) COPD (chronic obstructive pulmonary disease): Status: Chronic Qualifiers: COPD type: unspecified COPD Qualified Code(s): J44.9 - Chronic obstructive pulmonary disease, unspecified (2) History of hiatal hernia: Status: Acute Comment: [facility] GILLES Plan: Copy: Dr. Samuel Lemon M.D., F.A.C.S. (3) Inguinal hernia of right side without obstruction or gangrene: Status: Acute Plan: The patient intermittently requires steroids still for her COPD. Apparently she has high eosinophil count is being evaluated by an repairer wood furniture. We discussed the slight slippage of her Gilles and I feel that correlates with the size of her initial hernia and her COPD and her ongoing tobacco use and her chronic intermittent cough. She will treat medically at this standpoint. If she has additional difficulties we could consider referral to a tertiary center to see if her redo repair with mesh would be pertinent Regarding the patient's symptomatic right groin hernia I have offered her laparoscopic right inguinal hernia repair with mesh. She has had an opportunity to ask and have questions answered. She is interested in proceeding. She is aware that her medical comorbidities to place her at increased risk for recurrence. I believe that a laparoscopic approach would offer the best chance of a durable repair. We will schedule procedure at her discretion Jackson Lemon M.D., F.A.C.S. I have examined the patient and the H&P has been reviewed. There are no clinical changes since date of exam. Jackson Lemon M.D., F.A.C.S.
[2023-09-26] MEDS: Cefazolin 2 GM in 0.9% Normal Saline (100mL Bag) 100 ML IV (10:49)
--- NOTE | 2023-09-26 10:49 | DCINST_ITS ---
Discharge Instructions Procedure General Surgery Diet Discharge Diet: Light diet - advance as tolerated (if you have questions about your diet instructions, please talk to you doctor.) Activity Discharge Activity: May Not Drive (for 3-5 days or while taking narcotic pain medicine.) May shower in (days): 1 Lifting Restrictions: 10 pounds Dressing / Incision Call your doctor if your incision/area has: Continuous Slow Oozing, Sudden Increased Bleeding, Increased Pain/ Swelling, Increased Redness and Foul Smelling Discharge Call your doctor if you observe: Fever of 101 or Higher Suture Line Care: Avoid Pulling/Pushing and Avoid Pinching/Bending Additional Dressing/Incision Instructions:: Change or remove dressing in 4 days. Leave steri-strips in place for 1 week. Follow Up Care Please Follow Up With: Jackson Lemon MD When: Call [phone] to make an appointment to be seen in about 10 days. Test Results: Test results from this visit will be discussed in further detail at your follow- up appointment, if applicable. Discharge Plan Admission Attending Provider: Jackson Lemon Primary Care Provider: Samuel Vazquez Discharge Orders/Prescriptions Prescriptions: No Action amlodipine 5 mg tablet 5 mg PO DAILY meloxicam 7.5 mg tablet 7.5 mg PO BID mecobalamin (vitamin B12) 5,000 mcg tablet,chewable 5,000 mcg PO DAILY losartan-hydrochlorothiazide 1 EACH tablet 1 ea PO DAILY Patient Comments: BP albuterol sulfate [ProAir HFA] 1 PUFF inhaler 1 - 2 puff inhalation Q4H PRN PRN (Reason: Asthma) duloxetine 60 mg capsule,delayed release(DR/EC) 60 mg PO DAILY Patient Comments: FIBROMYALGIA ipratropium-albuterol 0.5 mg-3 mg(2.5 mg base)/3 mL solution for nebulization 3 ml inhalation Q8H PRN (Reason: shortness of breath or wheezing) Patient Comments: Inhale 3 mL as instructed every 6 hours as needed for wheezing/shortness of breath. budesonide-formoterol [Symbicort] 160-4.5 mcg/actuation HFA aerosol inhaler 2 puff INHALATION BID Patient Comments: Inhale 2 Puffs as instructed two times a day. budesonide 0.5 mg/2 mL suspension for nebulization 0.5 mg inhalation Q12H PRN (Reason: COPD) Patient Comments: INHALE 1 vial via NEBULIZER TWICE DAILY loratadine [Allergy Relief (loratadine)] 10 mg tablet 10 mg PO DAILY PRN (Reason: allergy symptoms) Other Ambulatory Orders: 12 Lead EKG (Routine) Timeframe: [id number] Location: None Selected Ordered By: Dr. Jackson Lemon Referrals / Follow Up: Samuel Vazquez MD [Primary Care Provider] - Disposition Disposition (needs filled in before D/C Order can be placed): Home, Self Care
--- NOTE | 2023-09-26 11:53 | OP.PCM_ITS ---
Report of Operation Date of Procedure: 09/26/23 Pre-Operative Diagnosis: Symptomatic right inguinal hernia Post-Operative Diagnosis: Symptomatic indirect right inguinal hernia Surgery/Procedure Performed:: Laparoscopic right inguinal herniorrhaphy Extra-large Bard 3D max right mesh, lot [id number], reference [id number], expiry date 11/19/2027 Description of Surgical Findings:: Timeout informed consent was obtained. Ancef 2 g were given intravenously. Clean procedure. The abdomen and right groin sterilely prepped and draped. 0.5% Marcaine was used as a local anesthetic. Throughout the procedure a total of 30 cc was used. Skin sites were Alfreda size. A vertical infraumbilical incision was created holding sutures of 0 Vicryl placed varies needle inserted saline drop test performed the abdomen was insufflated with CO2 to a pressure of 10 mmHg pressure. A 10 mm trocar inserted. Inspection revealed solid left groin. Indirect hernia right groin. There was some adhesions of omentum and the upper abdominal area at the previous laparoscopic hiatal hernia repair. Under laparoscopic visualization 5 mm ports were placed in the right and left lower quadrants. A ilioinguinal nerve block was performed on the right with a local. The peritoneum superior lateral to the internal ring was incised and carried immediately. The peritoneum was completely dissected free until the direct space indirect space and femoral area were clearly identified. Where needed hemostasis was obtained with Hem-o-jordyn clips. The round ligament was transected with Hem-o-jordyn clips. Excellent clearance was achieved. An extra- large Bard 3D max mesh was placed so as to cover the direct indirect and femoral areas. Excellent positioning was achieved. It was secured laterally superiorly and medially with secure strap. The peritoneum was then approximated to itself with secure strap and Hem-o-jordyn clips. Complete obliteration to the mesh was achieved. The abdomen was allowed to deflate of the CO2 through an antiviral valve. Trocars were removed. The fascia at the umbilicus proximal interrupted 0 Vicryl [id number] suture. Skin edges approximated with interrupted 4 Monocryl subdermal sutures. Steri-Strips Telfa OpSite dressings applied. Sponge and instrument and needle counts were reported to the surgeon to be correct. Specimens none. Drains none. Blood loss minimal. The patient was taken the recovery room in satisfied condition without apparent complication Jackson Lemon M.D., F.A.C.S. Surgeon: Jackson Lemon Type of Anesthesia: General and Local Anesthesiologist: Mauricio Courteny
[2023-09-26] MEDS: Bupivacaine Mpf 0.5% 30 ML VIAL (12:03)
== END 2023-09-26 13:39 | disposition home or self-care (01) ==
LOC: SDC 09:38 → AC 09:38
PROVIDERS: PCP Family Medicine; Referring Provider Family Medicine; Visit Provider Surgery
PROC: (CPT 49650; principal; 2023-09-26 10:40)
DX: K40.90 Unilateral inguinal hernia, without obstruction or gangrene, not specified as recurrent (principal); J44.9 Chronic obstructive pulmonary disease, unspecified; I10 Essential (primary) hypertension; M79.7 Fibromyalgia; G47.33 Obstructive sleep apnea (adult) (pediatric); Z79.899 Other long term (current) drug therapy; Z87.891 Personal history of nicotine dependence
CPT/HCPCS: 49650; 00840; 36415; 80048; 85027; 93005; J7120; C1781; J2405

== ENCOUNTER 2023-11-28 12:20 | Emergency (ER) | payer MEDICARE, SELFPAY ==
[2023-11-28 12:20] VITALS: BP 140/98; PULSE 113; RESP 16; TEMP 36.6; O2SAT 95; BMI 28.8
--- NOTE | 2023-11-28 12:30 | RAD_ITS ---
STUDY: X-RAY - RIGHT ANKLE REASON FOR EXAM: Female, 58 years old. PAIN TECHNIQUE: 3 view(s) of the ankle. COMPARISON: None. FINDINGS: Normal visualized distal tibia and fibula. There is spurring of the medial and lateral malleoli. There is fragmentation of the and lateral malleolus of the distal fibula with prior avulsion. There is mild joint space narrowing and spurring of the tibiotalar articulation. There is postoperative change with screw fusing the subtalar joint and screw in the medial aspect of the navicular. Hardware fusing the subtalar joint with sclerosis and lucency suggesting incomplete union. There is this body posterior to the talus. The soft tissue structures are unremarkable. RAD/Ankle min 3 Views IMPRESSION: Degenerative and postoperative change. Electronically Signed: Nithin Proctor MD at 12:52 EST ,
[2023-11-28 14:58] VITALS: BP 137/78; PULSE 64; RESP 16; TEMP 36.6; O2SAT 98
--- NOTE | 2023-11-28 16:31 | EDS_ITS ---
HPI History of Present Illness Chief Complaint: Lower Extremity Injury Narrative Narrative: Patient presenting with right ankle swelling. She states she chronically has right lateral ankle swelling but she notes she still has more swelling on the medial aspect of the right ankle. Patient has had surgery on the right ankle and states she had a ankle fusion. She has not had any new trauma. She states she has more hip pain with it when ambulating. She states she does try to ice and elevate it and this seems to help more than Tylenol or ibuprofen. No history of DVTs. No calf pain or leg pain. [facility] Medical History Alcohol use Anxiety Arthritis Asthma Chronic cough COPD (chronic obstructive pulmonary disease) DDD (degenerative disc disease) Fibromyalgia GERD (gastroesophageal reflux disease) History of edema History of hiatal hernia History of IBS History of steroid therapy Hyperlipidemia Hypertension Large hiatal hernia Migraine Mild persistent asthma without complication Normal stress echocardiogram CRUZ (obstructive sleep apnea) Rheumatoid arthritis Rheumatoid arthritis involving multiple sites with positive rheumatoid factor Shortness of breath on exertion Sleep apnea Smoker Wears glasses Home Medications albuterol sulfate 90 mcg/actuation aerosol inhaler (ProAir HFA) 1 - 2 puff inhalation Q4H PRN PRN Asthma 06/03/17 [History Last Taken 10/17/17 06:00] losartan 100 mg-hydrochlorothiazide 25 mg tablet 1 ea PO DAILY 06/03/17 [History Last Taken 10/17/17 06:00] amlodipine 5 mg tablet 5 mg PO DAILY 04/01/23 [History Last Taken Unknown] mecobalamin (vitamin B12) 5,000 mcg chewable tablet 5,000 mcg PO DAILY 04/01/23 [History Last Taken Unknown] meloxicam 7.5 mg tablet 7.5 mg PO BID 04/01/23 [History Last Taken Unknown] budesonide 0.5 mg/2 mL suspension for nebulization 0.5 mg inhalation Q12H PRN COPD 05/14/23 [History Last Taken Unknown] duloxetine 60 mg capsule,delayed release 60 mg PO DAILY 06/23/23 [History Last Taken Unknown] loratadine 10 mg tablet (Allergy Relief (loratadine)) 10 mg PO DAILY PRN allergy symptoms 06/23/23 [History Last Taken Unknown] budesonide-formoterol HFA 160 mcg-4.5 mcg/actuation aerosol inhaler (Symbicort) 2 puff inhalation BID 07/21/23 [History Last Taken Unknown] ipratropium 0.5 mg-albuterol 3 mg (2.5 mg base)/3 mL nebulization soln 3 ml inhalation Q8H PRN shortness of breath or wheezing 07/21/23 [History Last Taken 07/25/23] Allergy/AdvReac Type Severity Reaction Status Date / Time soybean Allergy Severe Shortness Verified 11/28/23 12:22 of breath sulfamethoxazole Allergy Anaphylaxis Verified 11/28/23 12:22 [From Bactrim] trimethoprim [From Bactrim] Allergy Anaphylaxis Verified 11/28/23 12:22 soy AdvReac Shortness Verified 11/28/23 12:22 of breath Family History Father Colon polyps Hypertension Mother Diabetes Hypertension Surgical History History of ankle surgery History of bunionectomy History of repair of hiatal hernia Hx of carpal tunnel repair Hx of colonoscopy Hx of hand surgery Hx of tonsillectomy S/P inguinal hernia repair Social History Smoking Status: Current every day smoker tobacco type: cigarettes ROS ROS ED Constitutional Constitutional ED: Denies chills, fever(s) or sweats Eyes Eyes: Denies blurry vision or change in vision ENT ENT ED: Denies ear pain or sore throat Cardiovascular Cardiovascular: Denies chest pain, palpitations or racing heartbeat Respiratory/Chest Respiratory/Chest: Denies cough, dyspnea or sputum Gastrointestinal Gastrointestinal: Denies abdominal pain, constipation, diarrhea, nausea or vomiting Genitourinary Genitourinary ED: Denies dysuria, hematuria or urinary frequency Musculoskeletal Musculoskeletal: Reports other Details: Right ankle pain ; Denies arthralgias, myalgias or neck pain Integumentary Denies abscess, Abrasions or rash Neurologic Neurologic: Denies headache(s), paresthesias or weakness Psychiatric Psychiatric: Denies anxiety, depression, suicidal ideation or suicidal thoughts Endocrine Endocrinology: Denies polydipsia or polyuria EXAM Physical Exam Const Vital Signs: 11/28/23 12:20 11/28/23 14:58 Temperature 97.8 F 98 F Temperature Source Temporal Pulse Rate 113 H 64 Respiratory Rate 16 16 Blood Pressure 140/98 H 137/78 H Blood Pressure Mean 112 97 Pulse Ox 95 98 Oxygen Delivery Method Room Air Positive well nourished General Appearance ED: NAD HEENT normocephalic and atraumatic Chest Wall inspection of chest normal Resp normal respiratory effort and no retractions Cardio regular rate and regular rhythm Extremity Extremity Narrative: Right ankle: Tenderness to palpation over right medial and lateral malleolus. There are some edema here. No bruising. Right foot neurovascular intact brisk up refill all 5 toes. Right foot: No pain at the base of the fifth metatarsal. No navicular pain. Neuro oriented x3 and CN's II-XII intact bilaterally MDM MDM MDM Narrative Medical decision making narrative: Patient with right ankle pain. She has degenerative changes noted today on x- ray on my interpretation. Radiology interprets this and agrees. Hardware appears to be in place. Patient counseled ice, elevation, NSAIDs. She is to use compression which she does have here in the room today as she has a compressive wrap. Recommend she follow-up with [facility] for her ankle pain. Return precautions discussed. Impression: 1. Right ankle pain 2. History of right ankle fusion Lab Data Attestation: I reviewed the patient's lab results. Radiography Diagnostic Testing: Clinical Impression(s) from Imaging Studies Ankle X-Ray 11/28/23 12:30 IMPRESSION: Degenerative and postoperative change. Electronically Signed: Nithin Proctor MD at 12:52 EST Reading Location ID and State: [facility] / [place] , Service support , Discharge Plan Triage Chief Complaint: Lower Extremity Injury ED Provider: Renato Lloyd Dx/Rx/DC Orders Instructions: ED Peripheral Edema, Unilateral Prescriptions: No Action amlodipine 5 mg tablet 5 mg PO DAILY meloxicam 7.5 mg tablet 7.5 mg PO BID mecobalamin (vitamin B12) 5,000 mcg tablet,chewable 5,000 mcg PO DAILY losartan-hydrochlorothiazide 1 EACH tablet 1 ea PO DAILY Patient Comments: BP albuterol sulfate [ProAir HFA] 1 PUFF inhaler 1 - 2 puff inhalation Q4H PRN PRN (Reason: Asthma) duloxetine 60 mg capsule,delayed release(DR/EC) 60 mg PO DAILY Patient Comments: FIBROMYALGIA ipratropium-albuterol 0.5 mg-3 mg(2.5 mg base)/3 mL solution for nebulization 3 ml inhalation Q8H PRN (Reason: shortness of breath or wheezing) Patient Comments: Inhale 3 mL as instructed every 6 hours as needed for wheezing/shortness of breath. budesonide-formoterol [Symbicort] 160-4.5 mcg/actuation HFA aerosol inhaler 2 puff INHALATION BID Patient Comments: Inhale 2 Puffs as instructed two times a day. budesonide 0.5 mg/2 mL suspension for nebulization 0.5 mg inhalation Q12H PRN (Reason: COPD) Patient Comments: INHALE 1 vial via NEBULIZER TWICE DAILY loratadine [Allergy Relief (loratadine)] 10 mg tablet 10 mg PO DAILY PRN (Reason: allergy symptoms) Primary Care Provider: Samuel Vazquez Referrals: Samuel Vazquez MD [Primary Care Provider] - Disposition Disposition: Home, Self Care Discharge Date/Time: 11/28/23 14:59
== END 2023-11-28 14:59 | disposition home or self-care (01) ==
LOC: ED 14:40
PROVIDERS: Emergency Provider Student in an Organized Health Care Education/Training Program; PCP Family Medicine; Visit Provider Student in an Organized Health Care Education/Training Program
DX: M25.571 Pain in right ankle and joints of right foot (principal); J44.9 Chronic obstructive pulmonary disease, unspecified; F17.210 Nicotine dependence, cigarettes, uncomplicated; G47.33 Obstructive sleep apnea (adult) (pediatric)
CPT/HCPCS: 73610; 99282